=== PATIENT | female | born 1980 | race Hispanic/Latino ===

== ENCOUNTER 2016-12-16 13:54 | Emergency (ER) | payer BC ==
[2016-12-16 14:02] VITALS: BP 124/88; PULSE 93; RESP 16; TEMP 97.6; O2SAT 100
--- NOTE | 2016-12-16 15:02 | ED PDOC ---
HPI: Headache Time Seen by Provider: 12/16/16 14:27 Chief Complaint (Nursing): Headache Chief Complaint (Provider): Headache History Per: Patient History/Exam Limitations: no limitations Onset/Duration Of Symptoms: Days (2) Current Symptoms Are (Timing): Still Present Severity: Moderate Quality: "Pain" Associated Symptoms: Blurred Vision, Nausea. denies: Vomiting Additional Complaint(s): Aristides Davies is a 36 y/o female, with no known history of migraines, presenting to the ER on 12/16/2016 with complaints of a right-sided headache x 3 days. Patient states the pain, which radiates to her neck, has been progressively exacerbating since the initial onset, prompting her to seek medical evaluation. She has taken ibuprofen yesterday but did not experience any relief. She reports associated blurry vision and nausea but denies vomiting. No changes in speech or associated numbness or tingling to face or upper or lower extremities. She rates current headache pain as 8/10. Past Medical History Reviewed: Historical Data, Nursing Documentation, Vital Signs Vital Signs: Last Vital Signs Temp 97.6 F 12/16/16 13:59 Pulse 93 H 12/16/16 13:59 Resp 16 12/16/16 13:59 BP 124/88 12/16/16 13:59 Pulse Ox 100 12/16/16 13:59 - Medical History PMH: No Chronic Diseases - Surgical History Surgical History: Appendectomy - Family History Family History: States: No Known Family Hx - Living Arrangements Living Arrangements: With Family - Social History Current smoker - smoking cessation education provided: No Alcohol: None Drugs: Denies - Home Medications Home Medications: Ambulatory Orders Medication Instructions Recorded Naproxen [Naprosyn] 500 mg PO BID #20 tab 12/16/16 - Allergies Allergies/Adverse Reactions: Allergies Allergy/AdvReac Type Severity Reaction Status Date / Time No Known Allergies Allergy Verified 09/02/15 12:09 Review of Systems ROS Statement: Except As Marked, All Systems Reviewed And Found Negative Constitutional: Negative for: Fever, Chills, Weakness Eyes: Positive for: Vision Change Cardiovascular: Negative for: Chest Pain Respiratory: Negative for: Cough Gastrointestinal: Positive for: Nausea. Negative for: Vomiting Musculoskeletal: Positive for: Neck Pain Neurological: Positive for: Headache. Negative for: Weakness, Numbness, Incoordination, Change in Speech, Confusion, Seizures, Altered Mental Status, Dizziness Physical Exam - Reviewed Nursing Documentation Reviewed: Yes Vital Signs Reviewed: Yes - Physical Exam Appears: Positive for: Well, Non-toxic, No Acute Distress Head Exam: Positive for: ATRAUMATIC, NORMAL INSPECTION, NORMOCEPHALIC Skin: Positive for: Normal Color, Warm, Dry Eye Exam: Positive for: Normal appearance, EOMI, PERRL ENT: Positive for: Normal ENT Inspection Neck: Positive for: Normal, Painless ROM, Supple. Negative for: Pain On Movement Of Neck Cardiovascular/Chest: Positive for: Regular Rate, Rhythm. Negative for: Murmur Respiratory: Positive for: Normal Breath Sounds. Negative for: Respiratory Distress Back: Negative for: Vertebral Tenderness Extremity: Positive for: Normal ROM. Negative for: Deformity Neurologic/Psych: Positive for: Alert, bone drier II-XII (intact), Oriented. Negative for: Motor/Sensory Deficits, Aphasia, Facial Droop - Laboratory Results Result Diagrams: 12/16/16 15:47 12/16/16 15:47 Urine POC: Negative - ECG O2 Sat by Pulse Oximetry: 100 Pulse Ox Interpretation: Normal - Other Rad CT head X-Ray: Read By Radiologist X-Ray Interpretation: no acute finding Medical Decision Making Medical Decision Makin:27 Initial Impression- 36 y/o female with headache Initial Plan- * CT Head w/o contrast * CMP * CBC w/ differential * Sodium Chloride 1,000 ml IV * Zofran 4 mg IV * Ultram 50 mg PO 16:20: Patient reports no improvement in nausea or headache s/p meds given. CT is negative. Patient also asking for something to eat. Toradol 30 mg IV given along with second bolus. Food tray also given. 17:22: Patient feels much better, she tolerated food tray, nausea and headache Resolved. Prescriptions given for Naprosyn for pain relief. Patient was instructed to follow up with her primary doctor or with neurologist, referral provided. Patient is aware she can return to the ED anytime if acutely worse. Documented by Kostas Martínez, acting as a scribe for Nunu Castillo PA-C All medical record entries made by the Scribe were at my direction and personally dictated by me. I have reviewed the chart and agree that the record accurately reflects my personal performance of the history, physical exam, medical decision making, and the department course for this patient. I have also personally directed, reviewed, and agree with the discharge instructions and disposition. Disposition - Clinical Impression Clinical Impression: Headache - Patient ED Disposition Is Patient to be Admitted: No Counseled Patient/Family Regarding: Studies Performed, Diagnosis, Need For Followup, Rx Given - Disposition Referrals: Vinicio Mann MD [Staff Provider] - Darin Cox MD [Staff Provider] - Disposition: Routine/Home Disposition Time: 17:23 Condition: IMPROVED Additional Instructions: Take prescription as directed as needed for pain. Plenty of fluids and rest. Follow-up with primary doctor or neurologist in 1-2 days. Prescriptions: Naproxen [Naprosyn] 500 mg PO BID #20 tab Instructions: General Headache (ED) Results - Lab Results Lab Results: 12/16/16 12/16/16 15:47 15:47 WBC 6.0 RBC 4.21 Hgb 13.0 Hct 40.4 MCV 95.9 MCH 31.0 MCHC 32.3 L RDW 13.7 Plt Count 251 MPV 9.3 Neut % (Auto) 71.4 Lymph % (Auto) 19.9 L [place] % (Auto) 6.5 Eos % (Auto) 1.3 Baso % (Auto) 0.9 Neut # 4.3 Lymph # 1.2 [place] # 0.4 Eos # 0.1 Baso # 0.1 Sodium 141 Potassium 3.9 Chloride 104 Carbon Dioxide 27 Anion Gap 13 BUN 11 Creatinine 0.7 Est GFR ( Amer) > 60 Est GFR (Non-Af Amer) > 60 Random Glucose 84 Calcium 9.5 Total Bilirubin 0.4 AST 29 ALT 41 Alkaline Phosphatase 38 Total Protein 7.2 Albumin 4.6 Globulin 2.5 Albumin/Globulin Ratio 1.8
[2016-12-16] MEDS ORDERED: Sodium Chloride 0.9% 1,000 ML IV STA ×2 (15:16→16:29)
[2016-12-16 15:51] LABS: BASO # 0.1 K/uL (0.0-0.2); BASO % 0.9 % (0.0-2.0); EOS # 0.1 K/uL (0.0-0.7); EOS % 1.3 % (0.0-4.0); HEMATOCRIT 40.4 % (34.0-47.0); LYMPH # 1.2 K/uL (1.0-4.3); LYMPH % 19.9 % (20.0-40.0); MEAN CELL VOLUME 95.9 fl (81.0-99.0); MEAN CORPUSCULAR HGB CONC 32.3 g/dL (33.0-37.0); MEAN PLATELET VOLUME 9.3 fl (7.2-11.7); MONO # 0.4 K/uL (0.0-0.8); MONO % 6.5 % (0.0-10.0); NEUT # 4.3 K/uL (1.8-7.0); NEUT % 71.4 % (50.0-75.0); RED CELL DISTRIBUTION WIDTH 13.7 % (11.5-14.5)
[2016-12-16 16:00] LABS: ALB/GLOB RATIO 1.8 (1.0-2.1); ALKALINE PHOSPHATASE 38 U/L (38-126); ALT/SGPT 41 U/L (9-52); AST/SGOT 29 U/L (14-36); BILIRUBIN,TOTAL 0.4 mg/dl (0.2-1.3); BLOOD UREA NITROGEN 11 mg/dl (7-17); CALCIUM 9.5 mg/dL (8.4-10.2); CARBON DIOXIDE 27 mmol/L (22-30); CHLORIDE 104 mmol/L (98-107); GFR AFRICAN-AMERICAN > 60; GLUCOSE,RANDOM 84 mg/dL (65-105); POTASSIUM 3.9 MMOL/L (3.6-5.0); SODIUM 141 mmol/l (132-148); TOTAL PROTEIN 7.2 G/DL (6.3-8.2)
--- NOTE | 2016-12-16 16:28 | CT ---
PROCEDURE: CT scan of the brain dated 12/16/2016. HISTORY: right side headache for 3 days COMPARISON: No prior study available comparison. TECHNIQUE: Axial computed tomography images were obtained through the head/brain without intravenous contrast. Radiation dose: Total exam DLP = 828.2 mGy-cm. This CT exam was performed using one or more of the following dose reduction techniques: Automated exposure control, adjustment of the mA and/or kV according to patient size, and/or use of iterative reconstruction technique. FINDINGS: HEMORRHAGE: No acute parenchymal, subarachnoid or extra-axial hemorrhage. . BRAIN: No evidence of large acute infarct. No obvious parenchymal nor extra-axial mass or collection seen on this noncontrast study. VENTRICLES: Ventricular and sulcal size are within range of normal for this patient's stated age. CALVARIUM: Unremarkable. PARANASAL SINUSES: Visualized paranasal sinuses are well-developed and well-aerated. MASTOID AIR CELLS: Unremarkable as visualized. No inflammatory changes. OTHER FINDINGS: Orbits and contents unremarkable. IMPRESSION: No acute intracranial hemorrhage.
== END 2016-12-16 17:30 | disposition home or self-care (01) ==
LOC: H.ER 13:54
DX: R51 Headache (principal)
CPT/HCPCS: 70450; 80053; 81025; 85025; 96361; 96374; 96375; 99285; J1885; J2405; J7040

== ENCOUNTER 2018-04-13 08:13 | Emergency (ER) | payer BC ==
[2018-04-13 08:18] VITALS: BMI 19.2
[2018-04-13] MEDS ORDERED: Sodium Chloride 0.9% 1,000 ML IV STA (09:49)
[2018-04-13 10:14] LABS: BASO # 0.1 K/uL (0.0-0.2); BASO % 0.7 % (0.0-2.0); EOS # 0.1 K/uL (0.0-0.7); EOS % 1.1 % (0.0-4.0); HEMOGLOBIN 14.9 g/dL (12.0-16.0); LYMPH # 0.9 K/uL (1.0-4.3); LYMPH % 10.3 % (20.0-40.0); MEAN CELL VOLUME 96.9 fl (81.0-99.0); MEAN CORPUSCULAR HEMOGLOBIN 32.1 pg (27.0-31.0); MEAN CORPUSCULAR HGB CONC 33.1 g/dL (33.0-37.0); MEAN PLATELET VOLUME 9.7 fl (7.2-11.7); MONO # 0.5 K/uL (0.0-0.8); MONO % 5.7 % (0.0-10.0); NEUT # 7.2 K/uL (1.8-7.0); NEUT % 82.2 % (50.0-75.0); RBC 4.65 Mil/uL (3.80-5.20); RED CELL DISTRIBUTION WIDTH 13.6 % (11.5-14.5); WHITE BLOOD COUNT 8.8 K/uL (4.8-10.8)
[2018-04-13 10:23] LABS: ALB/GLOB RATIO 1.5 (1.0-2.1); ALBUMIN 4.7 g/dL (3.5-5.0); ALT/SGPT 48 U/L (9-52); AST/SGOT 35 U/L (14-36); BLOOD UREA NITROGEN 12 mg/dl (7-17); CALCIUM 9.8 mg/dL (8.4-10.2); GFR NON-AFRICAN AMERICAN > 60
--- NOTE | 2018-04-13 11:39 | ED PDOC ---
HPI: General Adult Time Seen by Provider: 04/13/18 09:19 Chief Complaint (Nursing): Syncope Chief Complaint (Provider): Syncope History Per: Patient History/Exam Limitations: no limitations Onset/Duration Of Symptoms: Days (x 2 weeks) Current Symptoms Are (Timing): Still Present Additional Complaint(s): 37 year old female presents to the ED complaining of dizziness, nausea and loss of appetite for the last 2 weeks. She also reports right wrist pain. Patient admits she has been drinking alcohol more frequently than usual in the last few weeks because she is depressed. Last night she drank more alcohol than she usual does. She got dizzy and fell on her right wrist. Patient sees a therapist for her depression and requests resources to manage her alcohol abuse. Otherwise, denies fever, vomiting, chest, diarrhea, suicidal ideation, homicidal ideation, and abdominal pain. PMD: Dr. Pereira Past Medical History Reviewed: Historical Data, Nursing Documentation, Vital Signs Vital Signs: Last Vital Signs Temp 97.5 F L 04/13/18 08:18 Pulse 72 04/13/18 08:18 Resp 17 04/13/18 08:18 BP 102/69 04/13/18 08:18 Pulse Ox 97 04/13/18 08:18 - Medical History PMH: No Chronic Diseases - Surgical History Surgical History: Appendectomy - Family History Family History: States: Unknown Family Hx - Home Medications Home Medications: Ambulatory Orders Medication Instructions Recorded Naproxen [Naprosyn] 500 mg PO BID #20 tab 12/16/16 Nitrofurantoin Macrocrystals 100 mg PO BID #14 cap 04/13/18 [Macrobid] - Allergies Allergies/Adverse Reactions: Allergies Allergy/AdvReac Type Severity Reaction Status Date / Time No Known Allergies Allergy Verified 04/13/18 08:33 Review of Systems ROS Statement: Except As Marked, All Systems Reviewed And Found Negative Constitutional: Positive for: Other (loss of appetite). Negative for: Fever Cardiovascular: Negative for: Chest Pain Gastrointestinal: Positive for: Nausea. Negative for: Vomiting, Abdominal Pain, Diarrhea Musculoskeletal: Positive for: Hand Pain (right wrist pain) Neurological: Positive for: Dizziness Physical Exam - Reviewed Nursing Documentation Reviewed: Yes Vital Signs Reviewed: Yes - Physical Exam Appears: Positive for: Non-toxic, No Acute Distress Head Exam: Positive for: ATRAUMATIC, NORMAL INSPECTION, NORMOCEPHALIC Skin: Positive for: Normal Color, Warm, Dry Eye Exam: Positive for: EOMI, Normal appearance, PERRL Neck: Positive for: Normal, Painless ROM, Supple Cardiovascular/Chest: Positive for: Regular Rate, Rhythm. Negative for: Murmur Respiratory: Positive for: Normal Breath Sounds. Negative for: Respiratory Distress Gastrointestinal/Abdominal: Positive for: Normal Exam, Soft. Negative for: Tenderness Extremity: Positive for: Normal ROM (x 4). Negative for: Deformity Neurologic/Psych: Positive for: Alert, Oriented (x 3). Negative for: Motor/Sensory Deficits - Laboratory Results Result Diagrams: 04/13/18 10:00 04/13/18 10:00 - ECG O2 Sat by Pulse Oximetry: 97 (RA) Pulse Ox Interpretation: Normal - Progress Re-evaluation Time: 13:30 Condition: Re-examined, Improved Medical Decision Making Medical Decision Makin:48 Impression: alcohol abuse and dizziness Differentials include but are not limited to: dehydration, depression, complications of chronic alcohol abuse Initial Plan: --Alcohol --CMP --CBC --NS IV --urine dip --Right wrist x-ray 13:32 Right wrist x-ray FINDINGS: BONES: Normal. No fracture. JOINTS: Normal. No dislocation. SOFT TISSUES: Normal. OTHER FINDINGS: None. IMPRESSION: Normal right wrist radiographs. Scribe Attestation: Documented by Dulce Feliciano, acting as a scribe for Tabitha Gastelum MD Provider Scribe Attestation: All medical record entries made by the Scribe were at my direction and personally dictated by me. I have reviewed the chart and agree that the record accurately reflects my personal performance of the history, physical exam, medical decision making, and the department course for this patient. I have also personally directed, reviewed, and agree with the discharge instructions and disposition. Disposition - Clinical Impression Clinical Impression: Wrist pain, right, UTI (urinary tract infection), Alcohol abuse - Patient ED Disposition Is Patient to be Admitted: No Doctor Will See Patient In The: Office Counseled Patient/Family Regarding: Studies Performed, Diagnosis, Need For Followup - Disposition Referrals: [facility] [Outside] Disposition: Routine/Home Disposition Time: 13:30 Condition: GOOD Additional Instructions: JAZZ CHRISTINE, thank you for letting us take care of you today. Your provider was Tabitha Monzon MD and you were treated for FAINTED. The emergency medical care you received today was directed at your acute symptoms. If you were prescribed any medication, please fill it and take as directed. It may take several days for your symptoms to resolve. Return to the Emergency Department if your symptoms worsen, do not improve, or if you have any other problems. Please contact your doctor or call one of the physicians/clinics you have been referred to that are listed on the Patient Visit Information form that is included in your discharge packet. Bring any paperwork you were given at discharge with you along with any medications you are taking to your follow up visit. Our treatment cannot replace ongoing medical care by a primary care provider outside of the emergency department. Thank you for allowing the [facility] team to be part of your care today. If you had an X-Ray or CT scan: A Radiologist will review the ED reading if any change in treatment is needed we will contact you. If you had a blood, urine, or wound culture: It will take several days for the results, if any change in treatment is needed we will contact you. If you had an STI test: It will take 48 hours for the results. Please call after 1 week if you have not heard back. Prescriptions: Nitrofurantoin Macrocrystals [Macrobid] 100 mg PO BID #14 cap Instructions: Urinary Tract Infections in Adults, Wrist Sprain (DC), Alcohol Abuse and Alcoholism (DC)
--- NOTE | 2018-04-13 13:36 | RAD ---
Date of service: Site about the a.m. 04/13/2018 PROCEDURE: Right Wrist Radiographs. HISTORY: right wrist pain injury COMPARISON: None. FINDINGS: BONES: Normal. No fracture. JOINTS: Normal. No dislocation. SOFT TISSUES: Normal. OTHER FINDINGS: None. IMPRESSION: Normal right wrist radiographs.
[2018-04-13 14:22] VITALS: BP 120/78; PULSE 78; RESP 19; TEMP 97
[2018-04-17 15:26] VITALS: O2SAT 97
== END 2018-04-13 14:23 | disposition home or self-care (01) ==
LOC: H.ER 08:13
DX: F10.10 Alcohol abuse, uncomplicated (principal); N39.0 Urinary tract infection, site not specified; M25.531 Pain in right wrist
CPT/HCPCS: 73110; 80053; 81025; 82948; 85025; 99285; G0480; J7030

== ENCOUNTER 2018-06-09 16:35 | Emergency (ER) | payer BC ==
[2018-06-09 16:35] VITALS: BMI 19.2
[2018-06-09 16:54] VITALS: BP 112/65; PULSE 105; RESP 20; O2SAT 99
--- NOTE | 2018-06-09 17:27 | ED PDOC ---
History of Present Illness History of Present Illness: 37 yo female, no PMH, presents to ED with c/o fever/chills/body aches and back pain radiating to RLQ since last night. Motrin taken 2 hours [employer] to ED. No nausea or vomiting, no cough or congestion. HPI: Influenza Time Seen by Provider: 06/09/18 16:59 Chief Complaint: Fever Past Medical History Reviewed: Nursing Documentation, Vital Signs Vital Signs: Last Vital Signs Temp 99 F 06/09/18 16:51 Pulse 105 H 06/09/18 16:51 Resp 20 06/09/18 16:51 BP 112/65 06/09/18 16:51 Pulse Ox 99 06/09/18 16:51 - Medical History PMH: No Chronic Diseases - Surgical History Surgical History: Appendectomy - Family History Family History: States: Unknown Family Hx - Living Arrangements Living Arrangements: With Family - Social History Current smoker - smoking cessation education provided: No Alcohol: Social Drugs: Denies - Home Medications Home Medications: Ambulatory Orders Medication Instructions Recorded Naproxen [Naprosyn] 500 mg PO BID #20 tab 12/16/16 Nitrofurantoin Macrocrystals 100 mg PO BID #14 cap 04/13/18 [Macrobid] - Allergies Allergies/Adverse Reactions: Allergies Allergy/AdvReac Type Severity Reaction Status Date / Time No Known Allergies Allergy Verified 06/09/18 16:51 Review of Systems ROS Statement: Except As Marked, All Systems Reviewed And Found Negative Constitutional: Positive for: Fever, Chills Gastrointestinal: Positive for: Abdominal Pain Physical Exam - Reviewed Nursing Documentation Reviewed: Yes Vital Signs Reviewed: Yes - Physical Exam Appears: Positive for: Well, Non-toxic, No Acute Distress Head Exam: Positive for: ATRAUMATIC, NORMAL INSPECTION, NORMOCEPHALIC Skin: Positive for: Normal Color, Warm, DRY Eye Exam: Positive for: EOMI, Normal appearance, PERRL ENT: Positive for: Normal ENT Inspection Neck: Positive for: Normal, Painless ROM Cardiovascular/Chest: Positive for: Regular Rate, Rhythm Respiratory: Positive for: CNT, Normal Breath Sounds Gastrointestinal/Abdominal: Positive for: Soft, Tenderness (mild RLQ tendernss, (+) R flank). Negative for: Distended, Guarding Back: Positive for: Normal Inspection. Negative for: L CVA Tenderness, R CVA Tenderness Extremity: Positive for: Normal ROM Neurologic/Psych: Positive for: Alert, Oriented Medical Decision Making Medical Decision Making: IV access established and diagnostics ordered Acetaminophn PO ordered for 101 fever on re-eval Flu (-) CBC adn COMP WNL UTI noted on UA and culture sent IV Rocephin ordered US obtained for RLQ/Renal views Case endorsed to MILAGRO Dutta at 1999 pending diagnostic review and re-eval - Laboratory Results Result Diagrams: 06/09/18 17:46 06/09/18 17:46 - ECG O2 Sat by Pulse Oximetry: 99 Disposition - Clinical Impression Clinical Impression: Fever, UTI (urinary tract infection) - Patient ED Disposition Is Patient to be Admitted: Transfer of Care - Disposition Disposition: Transfer of Care Disposition Time: 19:39 Condition: STABLE Forms: [employer] (Ukrainian)
[2018-06-09 17:50] LABS: VENOUS BLOOD GAS PCO2 39 mmHg (40-60); VENOUS BLOOD GAS PO2 12 mm/Hg (30-55); VENOUS BLOOD PH 7.45 (7.32-7.43)
[2018-06-09 17:50] LABS: BASO % 0.3 % (0.0-2.0); EOS % 0.3 % (0.0-4.0); LYMPH # 0.4 K/uL (1.0-4.3); LYMPH % 6.1 % (20.0-40.0); MEAN CELL VOLUME 97.3 fl (81.0-99.0); MEAN CORPUSCULAR HEMOGLOBIN 32.6 pg (27.0-31.0); MEAN CORPUSCULAR HGB CONC 33.5 g/dL (33.0-37.0); MEAN PLATELET VOLUME 9.2 fl (7.2-11.7); MONO # 0.8 K/uL (0.0-0.8); MONO % 12.2 % (0.0-10.0); NEUT # 5.6 K/uL (1.8-7.0); NEUT % 81.1 % (50.0-75.0); NRBC % 0.1 % (0.0-0.0); PLATELET COUNT 218 K/uL (130-400); RED CELL DISTRIBUTION WIDTH 13.4 % (11.5-14.5); WHITE BLOOD COUNT 6.9 K/uL (4.8-10.8)
[2018-06-09 17:54] LABS: SQUAMOUS EPITHIAL 14 /hpf (0-5); URINE BACTERIA OCC (<OCC); URINE BILIRUBIN NEGATIVE (NEGATIVE); URINE BLOOD MODERATE (NEGATIVE); URINE CLARITY CLOUDY (Clear); URINE COLOR YELLOW (YELLOW); URINE GLUCOSE (UA) NEG (NEGATIVE); URINE LEUKOCYTE ESTERASE TRACE Leu/uL (Negative); URINE PROTEIN NEGATIVE (NEGATIVE); URINE UROBILINOGEN 0.2-1.0 mg/dL (0.2-1.0)
[2018-06-09 17:59] LABS: ALB/GLOB RATIO 1.3 (1.0-2.1); ALBUMIN 4.2 g/dL (3.5-5.0); ALT/SGPT 32 U/L (9-52); AST/SGOT 24 U/L (14-36); BLOOD UREA NITROGEN 10 mg/dl (7-17); CALCIUM 9.8 mg/dL (8.4-10.2); GFR NON-AFRICAN AMERICAN > 60
--- NOTE | 2018-06-09 18:16 | RAD ---
Date of service: 06/09/2018 PROCEDURE: CHEST RADIOGRAPH, 1 VIEW HISTORY: fever COMPARISON: 05/20/2012 FINDINGS: LUNGS: Clear. PLEURA: No pneumothorax or pleural fluid seen. CARDIOVASCULAR: No aortic atherosclerotic calcification present. Normal. OSSEOUS STRUCTURES: No significant abnormalities. VISUALIZED UPPER ABDOMEN: Normal. OTHER FINDINGS: None. IMPRESSION: No active disease. No acute/significant interval changes.
[2018-06-09] MEDS ORDERED: cefTRIAXone (Rocephin) 1 gm Inj ONE (18:47)
[2018-06-09 18:54] VITALS: TEMP 98.6
[2018-06-09 20:17] LABS: BANDS 4 % (0-2); LYMPHOCYTE 10 % (20-50); MONOCYTE 11 % (0-10); NEUTROPHIL 75 % (42-75); PLATELET ESTIMATE NORMAL (NORMAL); TOTAL CELLS COUNTED 100
--- NOTE | 2018-06-10 09:18 | US ---
Date of service: 06/09/2018 PROCEDURE: Ultrasound of the Kidneys HISTORY: R flank pain COMPARISON: None available. TECHNIQUE: Sonogram of the kidneys. FINDINGS: RIGHT KIDNEY: Measures: cm. Normal in size, contour and echogenicity. No stone, solid mass lesion or hydronephrosis visualized. LEFT KIDNEY: Measures: cm. Normal in size, contour and echogenicity. No stone, solid mass lesion or hydronephrosis visualized. OTHER FINDINGS: None. IMPRESSION: Unremarkable renal sonogram.
--- NOTE | 2018-06-10 09:19 | US ---
Date of service: 06/09/2018 HISTORY: RLQ pain COMPARISON: None available. TECHNIQUE: FINDINGS: UTERUS: Measures 8.0 x 6.1 cm. Normal in size and appearance. No fibroid or other mass lesion seen. ENDOMETRIUM: Measures 5 mm in diameter. Unremarkable. CERVIX: No cervical abnormality identified. RIGHT OVARY: No solid mass. Normal flow. LEFT OVARY: No solid mass. Normal flow. FREE FLUID: No significant free fluid noted. OTHER FINDINGS: None. IMPRESSION: Unremarkable pelvic ultrasound.
== END 2018-06-09 20:35 | disposition home or self-care (01) ==
LOC: H.ER 16:35
DX: R50.9 Fever, unspecified (principal); N39.0 Urinary tract infection, site not specified
CPT/HCPCS: 71045; 76770; 76830; 80053; 81003; 81025; 82803; 85025; 87040; 87086; 87804; 96374; 99283; J0696